=== PATIENT | male | born 1960 | race Caucasian/White ===

== ENCOUNTER 2018-03-24 12:17 | Emergency (ER) | payer OTHER ==
[~2018-03-24 12:17] MED LIST: TRAM50 PO; Z.0.NO CURRENT MEDS
[2018-03-24 12:32] VITALS: BP 106/73; PULSE 66; RESP 20; TEMP 97.8; O2SAT 96
[2018-03-24] MEDS ORDERED: MORPHINE SULFATE 4 MG/ML INJ IV PUSH ONE (12:45)
[2018-03-24] MEDS ORDERED: ONDANSETRON HCL 4 MG/2 ML VIAL IV PUSH ONE (12:45)
--- NOTE | 2018-03-24 12:49 | PD ---
HPI Chief Complaint: Injury Time Seen by Provider: 12:41 Travel History International Travel<30 days: No Contact w/Intl Traveler<30days: No Traveled to known affect area: No History of Present Illness HPI This is a 57-year-old male who presents for evaluation of right shoulder, wrist pain. He reports that prior to arrival he was standing on a 5 foot ladder cutting a tree branch when he fell, landing on his right arm. No head trauma loss of consciousness. He is complaining of right shoulder pain primarily. Pain is an aching pain which is constant and worse with movement. He has mild right wrist and right elbow pain as well. Denies neck or back pain, numbness or tingling or weakness, chest pain or shortness of breath, abdominal pain. Last tetanus vaccination 1 year ago. No other complaints at this time. [facility] Social History Alcohol Use: No Tobacco Use: No Allergies-Medications (Allergen,Severity, Reaction): Coded Allergies: oseltamivir (Unverified Allergy, Unknown, 03/24/18) Reported Meds & Prescriptions Reported Meds & Active Scripts Active Ibuprofen 800 Mg Tab 800 Mg PO Q6HR PRN Hydrocodone-Acetaminophen 5-325 mg Tab 1 Tab PO Q6H PRN Review of Systems Except as stated in HPI: all other systems reviewed are Neg Physical Exam Narrative GENERAL: Well-developed well-nourished male in no acute distress SKIN: Warm and dry. Abrasion posterior right elbow. HEAD: Atraumatic. Normocephalic. EYES: Pupils equal and round. No scleral icterus. No injection or drainage. ENT: No nasal bleeding or discharge. Mucous membranes pink and moist. NECK: Trachea midline. No JVD. CARDIOVASCULAR: Regular rate and rhythm. No murmur appreciated. RESPIRATORY: No accessory muscle use. Clear to auscultation. Breath sounds equal bilaterally. GASTROINTESTINAL: Abdomen soft, non-tender, nondistended. Hepatic and splenic margins not palpable. MUSCULOSKELETAL: Tender to palpation right shoulder joint, right elbow and right wrist. Right shoulder range of motion is limited. The patient is able to flex and extend his right wrist. Capillary refill less than 2 seconds all digits right hand. 2+ radial pulse. Abrasion posterior right elbow. NEUROLOGICAL: Awake and alert. No obvious cranial nerve deficits. Motor grossly within normal limits. Normal speech. Data Data Last Documented VS Vital Signs Date Time Temp Pulse Resp B/P (MAP) Pulse Ox O2 Delivery O2 Flow Rate FiO2 03/24/18 12:50 Room Air 03/24/18 12:32 97.8 66 20 106/73 (84) 96 Orders Orders Wrist, Complete (Dtr8lgb) (03/24/18 ) Iv Access Insert/Monitor (03/24/18 12:43) Morphine Inj (Morphine Inj) (03/24/18 12:45) Ondansetron Inj (Zofran Inj) (03/24/18 12:45) Shoulder, Limited(2vws) (03/24/18 ) Elbow, Limited (Ap&Lat) (03/24/18 ) Sling And Swathe (03/24/18 ) [facility] Medical Decision Making Medical Screen Exam Complete: Yes Emergency Medical Condition: Yes Medical Record Reviewed: Yes Differential Diagnosis Shoulder dislocation, proximal humeral fracture, acromioclavicular separation, sprain, contusion, rotator cuff tear, wrist sprain, wrist fracture Narrative Course X-ray imaging of the right shoulder, elbow and wrist will be obtained. The patient will be given IV analgesics. X-ray of the right shoulder reveals CONCLUSION: Spiral slightly comminuted fracture of the right humeral neck. X-ray of the right wrist and elbow reveal no acute abnormalities. The patient will be placed in a sling and swath for outpatient orthopedic follow-up. Diagnosis Primary Impression: Closed fracture of right proximal humerus Referrals: Julio Andres Jr., MD,Mcao Simms MD Additional Instructions: Follow-up with an orthopedist such as Dr. Ibarra or Dr. Andres in the next week , call to make an appointment. Ice the area several times a day 15 minutes at a time. Pain medication as needed. Take ibuprofen with meals. Do not drive or drink alcohol and taking hydrocodone. Return for any emergent medical conditions. Med/Other Pt SpecificInfo: Prescription(s) given, Orthopedic Instructions Scripts Ibuprofen (Ibuprofen) 800 Mg Tab 800 MG PO Q6HR Y for PAIN, #40 TAB 0 Refills Prov: Tacho Baker MD 03/24/18 Hydrocodone-Acetaminophen (Hydrocodone-Acetaminophen) 5-325 mg Tab 1 TAB PO Q6H Y for PAIN, #15 TAB 0 Refills Prov: Tacho Baker MD 03/24/18 Disposition: 01 DISCHARGE HOME Condition: Stable Issa,Harjinder P. PA Mar 24, 2018 12:49
--- NOTE | 2018-03-24 13:57 | RADRPT ---
EXAM DATE/TIME: 03/24/2018 13:27 [facility] COMPARISON: No previous studies available for comparison. INDICATIONS : Fall. Right arm pain. MEDICAL HISTORY : None. SURGICAL HISTORY : None. ENCOUNTER: Initial ACUITY: 1 day PAIN SCORE: 10/10 LOCATION: Right proximal humerus FINDINGS: Two view examination of the right elbow demonstrates no soft tissue swelling, joint effusion, fractur e or dislocation. Bony mineralization is normal. CONCLUSION: Unremarkable limited examination of the right elbow. Ian Treadwell MD on March 24, 2018 at 13:55 Board Certified Radiologist. This report was verified electronically.
--- NOTE | 2018-03-24 14:03 | RADRPT ---
EXAM DATE/TIME: 03/24/2018 13:18 [facility] COMPARISON: No previous studies available for comparison. INDICATIONS : Fall. Right shoulder pain. MEDICAL HISTORY : None. SURGICAL HISTORY : None. ENCOUNTER: Initial ACUITY: 1 day PAIN SCORE: 10/10 LOCATION: Right proximal humerus FINDINGS: Two view examination of the right shoulder demonstrates a spiral fracture of the humeral neck with ex tension into the greater tuberosity. The glenohumeral and acromioclavicular joints are maintained. Bony mineralization is normal. CONCLUSION: Spiral slightly comminuted fracture of the right humeral neck. Ian Treadwell MD on March 24, 2018 at 14:00 Board Certified Radiologist. This report was verified electronically.
[2018-03-24] MEDS ORDERED: HYDR-3516 PO (14:09)
[2018-03-24] MEDS ORDERED: IBUP1TAB7 PO (14:09)
--- NOTE | 2018-03-24 14:09 | RADRPT ---
EXAM DATE/TIME: 03/24/2018 13:32 [facility] COMPARISON: No previous studies available for comparison. INDICATIONS : Fall. Right arm pain. MEDICAL HISTORY : None. SURGICAL HISTORY : None. ENCOUNTER: Initial ACUITY: 1 day PAIN SCORE: 10/10 LOCATION: Right humerus FINDINGS: Three view examination of the right wrist demonstrates no soft tissue swelling, dislocation, or fract ure. The carpal bones are in normal alignment. The joint spaces are maintained. Bony mineralizatio n is normal. CONCLUSION: Unremarkable examination of the right wrist. Ian Treadwell MD on March 24, 2018 at 14:04 Board Certified Radiologist. This report was verified electronically.
[2018-03-24 15:00] VITALS: BP 110/70
== END 2018-03-24 15:02 | disposition home or self-care (01) ==
LOC: NEPC 12:17
DX: S42.201A Unspecified fracture of upper end of right humerus, initial encounter for closed fracture (principal); W11.XXXA Fall on and from ladder, initial encounter; Y93.H2 Activity, gardening and landscaping
CPT/HCPCS: 29240; 73030; 73070; 73110; 96374; 96375; 99284; J2270; J2405